=== PATIENT | female | born 1990 | race Caucasian/White ===

== ENCOUNTER 2019-02-21 13:18 | Outpatient (CLI) | payer OTHER ==
[2019-02-21 14:40] LABS: ADD UMIC YES; UR ASCORBIC ACID NEGATIVE (NEGATIVE); UR BACTERIA FEW /HPF (NONE SEEN); UR BILIRUBIN (Dip) NEGATIVE (NEGATIVE); UR BLOOD (Dip) NEGATIVE (NEGATIVE); UR CLARITY CLOUDY (CLEAR); UR COLOR AMBER (YELLOW); UR GLUCOSE (Dip) NEGATIVE (NEGATIVE); UR KETONES (Dip) 1+ mg/dL (NEGATIVE); UR LEUKOCYTE ESTERASE (Dip) 3+ Leu/ul (NEGATIVE); UR MUCUS FEW /HPF (NONE SEEN); UR NITRITE (Dip) NEGATIVE (NEGATIVE); UR RBC 1 /HPF (0-5); UR SPECIFIC GRAVITY (Dip) 1.024 (1.003-1.030); UR SQUAMOUS EPITHELIAL CELL MODERATE /HPF (FEW); UR TOTAL PROTEIN (Dip) NEGATIVE (NEGATIVE); UR UROBILINOGEN (Dip) 1+ mg/dL (NEGATIVE); UR WBC 7 /HPF (0-5)
[2019-02-21 14:51] LABS: ADD MAN DIFF? NO
[2019-02-21 14:53] LABS: WHITE BLOOD COUNT 9.1 10^3/ul (4.8-10.8)
[2019-02-21 14:53] LABS: BASOPHILS % 0.3 % (0.0-2.0); EOSINOPHILS % 0.3 % (0.0-7.0); HEMATOCRIT 33.7 % (37.0-47.0); HEMOGLOBIN 11.6 g/dl (12.0-16.0); LYMPHOCYTES # 1.5 10^3/ul (0.8-2.9); MEAN CORPUSCULAR HEMOGLOBIN 32.1 pg (29.0-33.0); MEAN CORPUSCULAR HGB CONC 34.4 g/dl (32.0-37.0); MEAN CORPUSCULAR VOLUME 93.4 fl (82.0-101.0); MEAN PLATELET VOLUME 9.7 fl (7.4-10.4); MONOCYTE # 0.8 10^3/ul (0.3-0.9); MONOCYTES % 8.8 % (0.0-11.0); NEUTROPHIL # 6.7 10^3/ul (1.6-7.5); NEUTROPHILS % 73.9 % (39.0-77.0); PLATELET COUNT 208 10^3/UL (140-415); RED BLOOD COUNT 3.61 10^6/ul (4.20-5.40); RED CELL DISTRIBUTION WIDTH 12.4 % (11.5-14.5)
[2019-02-21 15:18] LABS: ALANINE AMINOTRANSFERASE 12 IU/L (13-69); ALBUMIN 3.3 g/dl (3.3-4.9); ALBUMIN/GLOBULIN RATIO 1.06; ALKALINE PHOSPHATASE 61 IU/L (42-121); ANION GAP 6 (5-13); ASPARTATE AMINO TRANSFERASE 20 IU/L (15-46); BILIRUBIN,INDIRECT 0.9 mg/dl (0-1.1); BILIRUBIN,TOTAL 0.9 mg/dl (0.2-1.3); BLOOD UREA NITROGEN 8 mg/dl (7-20); CALCIUM 9.1 mg/dl (8.4-10.2); CARBON DIOXIDE 22 mmol/L (21-31); CHLORIDE 107 mmol/L (97-110); CREATININE 0.45 mg/dl (0.44-1.00); Estimated GFR > 60 mL/min (>60); GLUCOSE 93 mg/dl (70-220); POTASSIUM 3.7 mmol/L (3.5-5.1); SODIUM 135 mmol/L (135-144); TOTAL PROTEIN 6.4 g/dl (6.1-8.1); URIC ACID 4.8 mg/dl (3.1-7.9)
[2019-02-21 15:20] LABS: INR 0.93; PROTIME 12.6 Sec (11.9-14.9)
[2019-02-21 15:21] LABS: PARTIAL THROMBOPLASTIN TIME 25.6 Sec (23.0-35.0)
== END 2019-02-21 17:15 | disposition home or self-care (01) ==
LOC: OBT 13:18 → L-D 13:18 → OBT 17:15
DX: O13.3 Gestational [pregnancy-induced] hypertension without significant proteinuria, third trimester (principal); Z3A.32 32 weeks gestation of pregnancy
CPT/HCPCS: 76818; 80053; 81001; 84560; 85025; 85384; 85610; 85730

== ENCOUNTER 2019-03-28 12:02 | Inpatient (IN) | payer OTHER ==
[2019-03-28 12:33] LABS: ADD MAN DIFF? NO
[2019-03-28 12:39] LABS: WHITE BLOOD COUNT 10.4 10^3/ul (4.8-10.8)
[2019-03-28 12:39] LABS: BASOPHILS % 0.3 % (0.0-2.0); EOSINOPHILS % 0.4 % (0.0-7.0); HEMATOCRIT 39.5 % (37.0-47.0); HEMOGLOBIN 13.3 g/dl (12.0-16.0); LYMPHOCYTES # 1.7 10^3/ul (0.8-2.9); LYMPHOCYTES % 16.7 % (15.0-51.0); MEAN CORPUSCULAR HEMOGLOBIN 31.6 pg (29.0-33.0); MEAN CORPUSCULAR HGB CONC 33.7 g/dl (32.0-37.0); MEAN CORPUSCULAR VOLUME 93.8 fl (82.0-101.0); MEAN PLATELET VOLUME 10.2 fl (7.4-10.4); MONOCYTE # 0.9 10^3/ul (0.3-0.9); MONOCYTES % 8.4 % (0.0-11.0); NEUTROPHIL # 7.7 10^3/ul (1.6-7.5); NEUTROPHILS % 73.8 % (39.0-77.0); PLATELET COUNT 227 10^3/UL (140-415); RED BLOOD COUNT 4.21 10^6/ul (4.20-5.40); RED CELL DISTRIBUTION WIDTH 12.5 % (11.5-14.5)
[2019-03-28 12:51] LABS: ADD UMIC YES; UR ASCORBIC ACID NEGATIVE (NEGATIVE); UR BACTERIA FEW /HPF (NONE SEEN); UR BILIRUBIN (Dip) NEGATIVE (NEGATIVE); UR BLOOD (Dip) NEGATIVE (NEGATIVE); UR CALCIUM OXALATE CRYSTAL MANY /HPF (NONE SEEN); UR CLARITY CLOUDY (CLEAR); UR COLOR AMBER (YELLOW); UR GLUCOSE (Dip) NEGATIVE (NEGATIVE); UR KETONES (Dip) TRACE mg/dL (NEGATIVE); UR LEUKOCYTE ESTERASE (Dip) TRACE Leu/ul (NEGATIVE); UR MUCUS MANY /HPF (NONE SEEN); UR NITRITE (Dip) NEGATIVE (NEGATIVE); UR RBC 2 /HPF (0-5); UR SPECIFIC GRAVITY (Dip) 1.035 (1.003-1.030); UR SQUAMOUS EPITHELIAL CELL FEW /HPF (FEW); UR TOTAL PROTEIN (Dip) 2+ mg/dl (NEGATIVE); UR UROBILINOGEN (Dip) 1+ mg/dL (NEGATIVE); UR WBC 10 /HPF (0-5)
[2019-03-28 12:55] LABS: ALANINE AMINOTRANSFERASE 9 IU/L (13-69); ALBUMIN 3.5 g/dl (3.3-4.9); ALBUMIN/GLOBULIN RATIO 1.12; ALKALINE PHOSPHATASE 82 IU/L (42-121); ANION GAP 6 (5-13); ASPARTATE AMINO TRANSFERASE 18 IU/L (15-46); BILIRUBIN,INDIRECT 0.8 mg/dl (0-1.1); BILIRUBIN,TOTAL 0.8 mg/dl (0.2-1.3); BLOOD UREA NITROGEN 9 mg/dl (7-20); CALCIUM 9.4 mg/dl (8.4-10.2); CARBON DIOXIDE 21 mmol/L (21-31); CHLORIDE 108 mmol/L (97-110); CREATININE 0.56 mg/dl (0.44-1.00); Estimated GFR > 60 mL/min (>60); GLUCOSE 119 mg/dl (70-220); POTASSIUM 3.6 mmol/L (3.5-5.1); SODIUM 135 mmol/L (135-144); TOTAL PROTEIN 6.6 g/dl (6.1-8.1); URIC ACID 4.8 mg/dl (3.1-7.9)
[2019-03-28 13:11] LABS: PROTIME 12.3 Sec (11.9-14.9)
[2019-03-28 13:12] LABS: PARTIAL THROMBOPLASTIN TIME 26.1 Sec (23.0-35.0)
[2019-03-28] MEDS ORDERED: LIDOCAINE 1% (MPF) 30 ML INJ INJ (16:00)
[2019-03-28] MEDS ORDERED: CARBOPROST 250 MCG INJ IM (16:00)
[2019-03-28] MEDS ORDERED: METHYLERGONOVINE 0.2 MG INJ IM (16:00)
[2019-03-28] MEDS ORDERED: OXYTOCIN 30 UNITS/LR 500 ML IV ×3 (16:00)
[2019-03-28] MEDS ORDERED: MISOPROSTOL 200 MCG TAB PR (16:00)
[2019-03-28 17:48] LABS: RAPID PLASMA REAGIN NONREACTIVE (NR)
[2019-03-28] MEDS: ACETAMINOPHEN 500 MG TAB PO (21:55)
[2019-03-29 16:05] LABS: COLLECTION PERIOD 24 hrs
[2019-03-29 16:29] LABS: URINE TOTAL PROTEIN < 5.0 mg/dl; VOLUME 950 mls
[2019-03-29] MEDS: LACTATED RINGER'S 1,000 ML IV ×3 (20:41)
== END 2019-03-29 21:04 | disposition home or self-care (01) | DRG 833 ==
LOC: OBT 12:02 → L-D 12:03 → OBT 15:30 → L-D 15:30
DX: O13.3 Gestational [pregnancy-induced] hypertension without significant proteinuria, third trimester (principal); Z3A.37 37 weeks gestation of pregnancy
CPT/HCPCS: 76818; 80053; 81001; 84156; 84560; 85025; 85384; 85610; 85730; 86592; 86850; 86900; 86901

== ENCOUNTER 2019-04-04 02:28 | Inpatient (IN) | payer OTHER ==
[2019-04-04] MEDS ORDERED: METHYLERGONOVINE 0.2 MG INJ IM ×2 (03:00→17:00)
[2019-04-04] MEDS ORDERED: BUTORPHANOL 2 MG INJ IV (03:00)
[2019-04-04] MEDS ORDERED: CARBOPROST 250 MCG INJ IM ×2 (03:00→17:00)
[2019-04-04] MEDS ORDERED: IBUPROFEN 600 MG TAB PO (03:00)
[2019-04-04] MEDS ORDERED: OXYTOCIN 30 UNITS/LR 500 ML IV ×3 (03:00→17:00)
[2019-04-04] MEDS ORDERED: MISOPROSTOL 200 MCG TAB PR ×2 (03:00→17:00)
[2019-04-04] MEDS ORDERED: LIDOCAINE 1% (MPF) 30 ML INJ INJ (03:00)
[2019-04-04] MEDS: AMPICILLIN 2 GM/NS (PMX) 100 ML IV (03:29)
[2019-04-04] MEDS: LACTATED RINGER'S 1,000 ML IV ×4 (03:29→08:00)
[2019-04-04] MEDS: BUTORPHANOL 2 MG INJ IV (03:38)
[2019-04-04 04:07] LABS: ADD MAN DIFF? NO
[2019-04-04 04:13] LABS: BASOPHILS % 0.2 % (0.0-2.0); HEMATOCRIT 37.9 % (37.0-47.0); LYMPHOCYTES # 0.8 10^3/ul (0.8-2.9); MEAN CORPUSCULAR HEMOGLOBIN 32.1 pg (29.0-33.0); MEAN CORPUSCULAR HGB CONC 34.3 g/dl (32.0-37.0); MEAN CORPUSCULAR VOLUME 93.6 fl (82.0-101.0); MONOCYTE # 1.1 10^3/ul (0.3-0.9); MONOCYTES % 6.4 % (0.0-11.0); NEUTROPHIL # 14.3 10^3/ul (1.6-7.5); NEUTROPHILS % 87.8 % (39.0-77.0); PLATELET COUNT 201 10^3/UL (140-415); RED BLOOD COUNT 4.05 10^6/ul (4.20-5.40); RED CELL DISTRIBUTION WIDTH 12.1 % (11.5-14.5)
[2019-04-04 04:13] LABS: WHITE BLOOD COUNT 16.3 10^3/ul (4.8-10.8)
[2019-04-04 04:20] LABS: ADD UMIC YES; UR ASCORBIC ACID NEGATIVE (NEGATIVE); UR BILIRUBIN (Dip) NEGATIVE (NEGATIVE); UR BLOOD (Dip) NEGATIVE (NEGATIVE); UR CLARITY CLOUDY (CLEAR); UR COLOR YELLOW (YELLOW); UR GLUCOSE (Dip) NEGATIVE (NEGATIVE); UR KETONES (Dip) 1+ mg/dL (NEGATIVE); UR LEUKOCYTE ESTERASE (Dip) 3+ Leu/ul (NEGATIVE); UR MUCUS FEW /HPF (NONE SEEN); UR NITRITE (Dip) NEGATIVE (NEGATIVE); UR RBC 3 /HPF (0-5); UR SPECIFIC GRAVITY (Dip) 1.021 (1.003-1.030); UR SQUAMOUS EPITHELIAL CELL MODERATE /HPF (FEW); UR TOTAL PROTEIN (Dip) NEGATIVE (NEGATIVE); UR UROBILINOGEN (Dip) NEGATIVE (NEGATIVE); UR WBC 94 /HPF (0-5)
[2019-04-04] MEDS ORDERED: ONDANSETRON 4 MG INJ IV (04:30)
[2019-04-04] MEDS ORDERED: FENTAnyl 2MCG/ML-ROPIV 0.2% 100 ML BAG EPI (04:30)
[2019-04-04] MEDS ORDERED: DIPHENHYDRAMINE 50 MG INJ IV (04:30)
[2019-04-04] MEDS ORDERED: NALOXONE (0.4 MG/ML) INJ IV (04:30)
[2019-04-04 04:31] LABS: INR 0.88; PT RATIO 0.9
[2019-04-04 04:32] LABS: ALANINE AMINOTRANSFERASE 19 IU/L (13-69); ALBUMIN 3.5 g/dl (3.3-4.9); ALBUMIN/GLOBULIN RATIO 1.12; ALKALINE PHOSPHATASE 97 IU/L (42-121); AMPHETAMINE/METHAMPHETAMINE Negative (NEGATIVE); ANION GAP 9 (5-13); ASPARTATE AMINO TRANSFERASE 14 IU/L (15-46); BARBITURATES Negative (NEGATIVE); BENZODIAZEPINES Negative (NEGATIVE); BILIRUBIN,INDIRECT 1.3 mg/dl (0-1.1); BILIRUBIN,TOTAL 1.3 mg/dl (0.2-1.3); BLOOD UREA NITROGEN 6 mg/dl (7-20); CALCIUM 8.9 mg/dl (8.4-10.2); CANNABINOIDS Negative (NEGATIVE); CARBON DIOXIDE 20 mmol/L (21-31); CHLORIDE 108 mmol/L (97-110); COCAINE Negative (NEGATIVE); CREATININE 0.46 mg/dl (0.44-1.00); Estimated GFR > 60 mL/min (>60); GLUCOSE 112 mg/dl (70-220); OPIATES Negative (NEGATIVE); PARTIAL THROMBOPLASTIN TIME 26.8 Sec (23.0-35.0); POTASSIUM 3.4 mmol/L (3.5-5.1); SODIUM 137 mmol/L (135-144); TOTAL PROTEIN 6.6 g/dl (6.1-8.1); URIC ACID 4.3 mg/dl (3.1-7.9)
[2019-04-04] MEDS ORDERED: FENTAnyl 2MCG/ML-ROPIV 0.2% 100 ML (04:48)
[2019-04-04] MEDS: EPHEDrine 25 MG/5 ML SYG IV (04:59)
[2019-04-04] MEDS: AMPICILLIN 1 GM/NS (PMX) 50 ML IV ×2 (06:59→11:19)
[2019-04-04] MEDS: OXYTOCIN 30 UNITS/LR 500 ML IV ×2 (15:16→15:17)
[2019-04-04] MEDS ORDERED: OXYCODONE/ASPIRIN (4.88/325) TAB PO ×2 (17:00)
[2019-04-04] MEDS ORDERED: LANOLIN HPA 1 PKT TOP (17:00)
[2019-04-04] MEDS ORDERED: ZOLPIDEM 5 MG TAB PO (17:00)
[2019-04-04] MEDS: IBUPROFEN 600 MG TAB PO (17:29)
[2019-04-04] MEDS: WITCH HAZEL/GLYCERIN PAD PR (17:30)
[2019-04-04] MEDS: BENZOCAINE 20% 56 ML SPRAY TOP (17:30)
[2019-04-04] MEDS: MINERAL OIL LIGHT 10 ML VIAL TOP (18:10)
[2019-04-04] MEDS: SENNA/DOCUSATE NA (8.6MG/50MG) TAB PO (21:17)
[2019-04-05] MEDS: IBUPROFEN 600 MG TAB PO ×4 (00:30→17:39)
[2019-04-05] MEDS: LACTATED RINGER'S 1,000 ML IV ×3 (02:59→18:59)
[2019-04-05 08:43] LABS: ADD MAN DIFF? NO
[2019-04-05 08:47] LABS: BASOPHILS % 0.2 % (0.0-2.0); EOSINOPHILS # 0.1 10^3/ul (0.0-0.5); EOSINOPHILS % 0.6 % (0.0-7.0); HEMATOCRIT 35.8 % (37.0-47.0); HEMOGLOBIN 11.9 g/dl (12.0-16.0); LYMPHOCYTES # 2.3 10^3/ul (0.8-2.9); LYMPHOCYTES % 18.3 % (15.0-51.0); MEAN CORPUSCULAR HGB CONC 33.2 g/dl (32.0-37.0); MEAN CORPUSCULAR VOLUME 96.2 fl (82.0-101.0); MEAN PLATELET VOLUME 10.8 fl (7.4-10.4); MONOCYTE # 1.1 10^3/ul (0.3-0.9); NEUTROPHILS % 71.2 % (39.0-77.0); PLATELET COUNT 199 10^3/UL (140-415); RED BLOOD COUNT 3.72 10^6/ul (4.20-5.40); RED CELL DISTRIBUTION WIDTH 12.7 % (11.5-14.5)
[2019-04-05 08:47] LABS: WHITE BLOOD COUNT 12.7 10^3/ul (4.8-10.8)
[2019-04-05 09:43] LABS: HEPATITIS B SURFACE ANTIGEN NEGATIVE (NEGATIVE)
[2019-04-05] MEDS: SENNA/DOCUSATE NA (8.6MG/50MG) TAB PO ×2 (09:48→21:00)
[2019-04-05 14:55] LABS: RAPID PLASMA REAGIN NONREACTIVE (NR)
[2019-04-06] MEDS: IBUPROFEN 600 MG TAB PO ×3 (00:10→11:16)
[2019-04-06] MEDS: LACTATED RINGER'S 1,000 ML IV (02:59)
[2019-04-06] MEDS: SENNA/DOCUSATE NA (8.6MG/50MG) TAB PO (09:27)
[2019-04-06] MEDS: DIPHTH/TET/ACEL PERTUSS (ADULT) 0.5 ML VIAL IM* (11:17)
== END 2019-04-06 15:05 | disposition home or self-care (01) | DRG 807 ==
LOC: OBT 02:28 → L-D 02:30 → OBT 02:55 → L-D 02:55 → PP1 16:34
PROC: 10E0XZZ Delivery of Products of Conception, External Approach (ICD-10-PCS; principal; 2019-04-04)
PROC: 0W8NXZZ Division of Female Perineum, External Approach (ICD-10-PCS; 2019-04-04)
DX: O99.214 Obesity complicating childbirth (principal); Z37.0 Single live birth; E66.01 Morbid (severe) obesity due to excess calories; O99.824 Streptococcus B carrier state complicating childbirth; O76 Abnormality in fetal heart rate and rhythm complicating labor and delivery; Z3A.38 38 weeks gestation of pregnancy; Z23 Encounter for immunization
CPT/HCPCS: 62322; 80053; 80307; 81001; 84560; 85025; 85610; 85730; 86592; 86850; 86900; 86901; 87086; 87340; 90715; 99464

== ENCOUNTER 2019-04-14 12:30 | Emergency (ER) | payer OTHER ==
[2019-04-14 14:06] LABS: ADD UMIC YES; UR ASCORBIC ACID NEGATIVE (NEGATIVE); UR BACTERIA FEW /HPF (NONE SEEN); UR BILIRUBIN (Dip) NEGATIVE (NEGATIVE); UR BLOOD (Dip) 3+ mg/dL (NEGATIVE); UR CLARITY CLOUDY (CLEAR); UR COLOR YELLOW (YELLOW); UR GLUCOSE (Dip) NEGATIVE (NEGATIVE); UR KETONES (Dip) NEGATIVE (NEGATIVE); UR LEUKOCYTE ESTERASE (Dip) 3+ Leu/ul (NEGATIVE); UR MUCUS FEW /HPF (NONE SEEN); UR NITRITE (Dip) NEGATIVE (NEGATIVE); UR RBC 13 /HPF (0-5); UR SPECIFIC GRAVITY (Dip) 1.023 (1.003-1.030); UR SQUAMOUS EPITHELIAL CELL MODERATE /HPF (FEW); UR TOTAL PROTEIN (Dip) 1+ mg/dl (NEGATIVE); UR UROBILINOGEN (Dip) NEGATIVE (NEGATIVE); UR WBC > 182 /HPF (0-5)
[2019-04-14 14:10] LABS: ADD MAN DIFF? NO
[2019-04-14] MEDS: SOD CHLORIDE 0.9% 1,000 ML IV (14:10)
[2019-04-14] MEDS: DIPHENHYDRAMINE 50 MG INJ IV (14:10)
[2019-04-14] MEDS: ONDANSETRON 4 MG INJ IV (14:10)
[2019-04-14] MEDS: KETOROLAC 30 MG INJ IV (14:10)
[2019-04-14 14:12] LABS: BASOPHIL # 0.1 10^3/ul (0.0-0.1); BASOPHILS % 0.6 % (0.0-2.0); EOSINOPHILS # 0.1 10^3/ul (0.0-0.5); EOSINOPHILS % 1.7 % (0.0-7.0); HEMATOCRIT 40.3 % (37.0-47.0); HEMOGLOBIN 13.7 g/dl (12.0-16.0); LYMPHOCYTES # 1.6 10^3/ul (0.8-2.9); LYMPHOCYTES % 19.1 % (15.0-51.0); MEAN CORPUSCULAR HEMOGLOBIN 31.9 pg (29.0-33.0); MEAN CORPUSCULAR VOLUME 93.7 fl (82.0-101.0); MONOCYTE # 0.4 10^3/ul (0.3-0.9); MONOCYTES % 4.3 % (0.0-11.0); NEUTROPHILS % 73.4 % (39.0-77.0); PLATELET COUNT 300 10^3/UL (140-415); RED CELL DISTRIBUTION WIDTH 11.8 % (11.5-14.5)
[2019-04-14 14:12] LABS: WHITE BLOOD COUNT 8.2 10^3/ul (4.8-10.8)
[2019-04-14 14:28] LABS: ANION GAP 7 (5-13); BLOOD UREA NITROGEN 13 mg/dl (7-20); CALCIUM 8.8 mg/dl (8.4-10.2); CARBON DIOXIDE 25 mmol/L (21-31); CHLORIDE 110 mmol/L (97-110); CREATININE 0.65 mg/dl (0.44-1.00); Estimated GFR > 60 mL/min (>60); GLUCOSE 95 mg/dl (70-220); POTASSIUM 4.1 mmol/L (3.5-5.1); SODIUM 142 mmol/L (135-144)
[2019-04-14 14:31] LABS: INR 0.88; PT RATIO 0.9
[2019-04-14 14:32] LABS: PARTIAL THROMBOPLASTIN TIME 26.3 Sec (23.0-35.0)
== END 2019-04-14 15:48 | disposition home or self-care (01) ==
LOC: FTE 12:30
DX: O99.89 Other specified diseases and conditions complicating pregnancy, childbirth and the puerperium (principal); R51 Headache; O86.20 Urinary tract infection following delivery, unspecified; B96.89 Other specified bacterial agents as the cause of diseases classified elsewhere
CPT/HCPCS: 36415; 70450; 80048; 81001; 81025; 85025; 85610; 85730; 96374; 96375; 99285-25